=== PATIENT | male | born 1945 | race Caucasian/White ===

== ENCOUNTER 2023-10-09 15:00 | Observation (INO) ==
[2023-10-09] MEDS: NS 0.9% 1000 ml BAG 1,000 ML IV ONE ×2 (15:35→21:48)
[2023-10-09 15:45] LABS: ABS Lymphocytes 0.9 10^3/uL (1.0-4.8); ABS Monocytes 0.5 10^3/uL (0.0-1.1); ABS Neutrophils 5.4 10^3/uL (1.5-7.6); ABS Nucleated RBC 0.01 10^3/ul; Eosinophil % 0.1 %; Hematocrit 37.2 % (38-53); Hemoglobin 12.4 g/dL (13.2-16.3); Lymphocyte % 13.1 %; Mean Corpuscular Hemoglobin 30.2 pg (27-33); Mean Corpuscular Hgb Conc 33.2 g/dL (31-36); Mean Corpuscular Volume 91.1 fL (80-97); Mean Platelet Volume 10.5 fL (7.5-11.2); Nucleated Red Blood Cells % 0.1 %/100WBC (0.0-0.8); Platelet Count 148 10^3/uL (150-450); Red Blood Count 4.08 10^6/uL (4.06-5.63); Red Cell Distribution Width 14.5 % (12-17); White Blood Count 6.8 10^3/uL (3.6-10.2)
[2023-10-09 15:51] LABS: INR 1.14 (0.83-1.13)
[2023-10-09 16:10] LABS: High Sens Troponin Baseline 20 pg/mL (<20)
[2023-10-09 17:11] LABS: High Sensitivity Troponin 1 Hr 16 pg/mL (<20)
[2023-10-09 17:34] LABS: ALT 174 U/L (7-52); AST 138 U/L (13-39); Albumin 3.1 g/dL (3.2-5.2); Albumin/Globulin Ratio 1.2 (1-3); Alkaline Phosphatase 54 U/L (35-149); Anion Gap 9 mmol/L (2-16); Blood Urea Nitrogen 60 mg/dL (6-24); CO2 Carbon Dioxide 26 mmol/L (22-32); Calcium 8.1 mg/dL (8.6-10.3); Chloride 107 mmol/L (101-111); Creatinine, Serum 2.14 mg/dL (0.67-1.17); Globulin 2.6 g/dL (2-4); Glucose 106 mg/dL (70-100); Potassium 4.2 mmol/L (3.5-5.0); Sodium 142 mmol/L (135-145); Total Bilirubin 0.4 mg/dL (0.2-1.0); Total Protein 5.7 g/dL (6.4-8.9); eGFR CKD-EPI 31.3 (>60)
[2023-10-09 18:02] LABS: Magnesium 2.2 mg/dL (1.9-2.7)
[2023-10-09 19:25] LABS: TSH Ultra Thyroid Stim Horm 2.67 mcIU/mL (0.34-5.60)
[2023-10-09 19:36] LABS: Folate > 20.00 ng/mL (5.90-24.80)
[2023-10-09 19:37] LABS: Vitamin B12 906 pg/mL (180-914)
[2023-10-09 20:07] LABS: Urine Appearance Clear; Urine Bilirubin Negative (Negative); Urine Blood Negative (Negative); Urine Color Yellow; Urine Glucose Negative (Negative); Urine Ketones Negative (Negative); Urine Nitrite Negative (Negative); Urine Protein 1+ (>=30 mg/dL) (Negative); Urine Specific Gravity 1.021 (1.002-1.030); Urine Urobilinogen Negative (Negative); Urine pH 5.5 (5.0-8.0)
[2023-10-09] MEDS ORDERED: Nicotine Lozenge mini 4 MG LOZNG.MINI MT PRN (20:26)
[2023-10-09 20:29] LABS: Urine Bacteria Absent /HPF (Absent); Urine Red Blood Cell 1+(3-5/hpf) /HPF (0-Trace); Urine White Blood Cell Trace(0-5/hpf) /HPF (0-Trace)
[2023-10-09] MEDS ORDERED: Polyethylene Glycol 3350 17 GM PACKET PO PRN (20:30)
[2023-10-09 20:58] LABS: % Iron Saturation 10 % (15-55); .Transferrin 150 mg/dL (203-362); Iron < 20 ug/dL (50-212); Phosphorus 3.3 mg/dL (2.5-5.0); Total Iron Binding Capacity 210 mcg/dL (250-450); Unsaturated Iron Binding 190 ug/dL
[2023-10-09] MEDS: Enoxaparin 30 MG/0.3 ML SYR SUBCUT SCH (21:02)
[2023-10-09 21:18] LABS: Ferritin 687.1 ng/mL (24-336)
[2023-10-09] MEDS: Lactated Ringers 1000 ml BAG 1,000 ML IV SCH (22:50)
[2023-10-10] MEDS: Lactated Ringers 1000 ml BAG 1,000 ML IV SCH (01:25)
[2023-10-10 02:23] LABS: Hepatitis B Surface Antigen Nonreactive (Nonreactive)
[2023-10-10 02:28] LABS: Hepatitis A Ab IgM Negative (Negative)
[2023-10-10 02:29] LABS: Hepatitis B Core IgM Nonreactive (Nonreactive)
[2023-10-10 02:41] LABS: Hepatitis C Antibody Negative (Negative)
[2023-10-10] MEDS: DOXYcycline 100 MG in NS 0.9% 250 ml 250 ML IVPB SCH (03:07)
[2023-10-10 07:03] LABS: ABS Lymphocytes 0.8 10^3/uL (1.0-4.8); ABS Monocytes 0.4 10^3/uL (0.0-1.1); ABS Neutrophils 4.3 10^3/uL (1.5-7.6); ABS Nucleated RBC 0.01 10^3/ul; Eosinophil % 0.4 %; Hemoglobin 10.4 g/dL (13.2-16.3); Mean Corpuscular Hemoglobin 30.6 pg (27-33); Mean Corpuscular Hgb Conc 33.6 g/dL (31-36); Mean Corpuscular Volume 91.1 fL (80-97); Mean Platelet Volume 10.7 fL (7.5-11.2); Nucleated Red Blood Cells % 0.1 %/100WBC (0.0-0.8); Platelet Count 119 10^3/uL (150-450); Red Cell Distribution Width 14.2 % (12-17); White Blood Count 5.5 10^3/uL (3.6-10.2)
[2023-10-10 07:06] LABS: Albumin 2.7 g/dL (3.2-5.2); Albumin/Globulin Ratio 1.2 (1-3); C Reactive Protein 124.82 mg/L (<8.01); Calcium 7.4 mg/dL (8.6-10.3); Creatinine, Serum 1.62 mg/dL (0.67-1.17); Globulin 2.2 g/dL (2-4); Magnesium 1.8 mg/dL (1.9-2.7); Phosphorus 3.2 mg/dL (2.5-5.0); Potassium 4.1 mmol/L (3.5-5.0); Total Bilirubin 0.4 mg/dL (0.2-1.0); Total Protein 4.9 g/dL (6.4-8.9); eGFR CKD-EPI 43.7 (>60)
[2023-10-10] MEDS: Cholecalciferol (VIT D3) 1,000 unit TAB PO SCH (08:17)
[2023-10-10] MEDS: NF: Multivitamins/Mins AREDS2 (NF) CAP PO SCH (08:18)
[2023-10-10] MEDS: Nicotine PATCH 14 MG/24 HR PATCH TRANSDERM SCH (08:18)
[2023-10-10] MEDS: Magnesium Sulfate 2 gm BAG 2 GM/50 ML BAG IVPB ONE (08:18)
[2023-10-10 08:33] LABS: Erythrocyte Sed Rate 28 mm/Hr (0-19)
[2023-10-10] MEDS ORDERED: VITAMIN B12 FOLIC ACID PO SCH (09:00)
[2023-10-11 06:29] LABS: ABS Eosinophils 0.2 10^3/uL (0.0-0.5); ABS Lymphocytes 1.4 10^3/uL (1.0-4.8); ABS Monocytes 0.4 10^3/uL (0.0-1.1); ABS Nucleated RBC 0.01 10^3/ul; Eosinophil % 3.4 %; Hematocrit 31.2 % (38-53); Hemoglobin 10.4 g/dL (13.2-16.3); Lymphocyte % 27.3 %; Mean Corpuscular Hemoglobin 29.9 pg (27-33); Mean Corpuscular Hgb Conc 33.2 g/dL (31-36); Mean Corpuscular Volume 90.3 fL (80-97); Mean Platelet Volume 10.3 fL (7.5-11.2); Nucleated Red Blood Cells % 0.1 %/100WBC (0.0-0.8); Platelet Count 165 10^3/uL (150-450); Red Blood Count 3.46 10^6/uL (4.06-5.63); Red Cell Distribution Width 14.4 % (12-17); White Blood Count 5.1 10^3/uL (3.6-10.2)
[2023-10-11 06:47] LABS: Albumin 2.6 g/dL (3.2-5.2); Albumin/Globulin Ratio 1.2 (1-3); Calcium 7.5 mg/dL (8.6-10.3); Creatinine, Serum 1.23 mg/dL (0.67-1.17); Globulin 2.2 g/dL (2-4); Potassium 3.9 mmol/L (3.5-5.0); Total Bilirubin 0.3 mg/dL (0.2-1.0); Total Protein 4.8 g/dL (6.4-8.9); eGFR CKD-EPI 60.8 (>60)
[2023-10-11 09:42] VITALS: BP 93/65
[2023-10-12 17:32] LABS: Anaplasma phagocytophilum Positive (Negative); B. miyamotoi PCR, B Negative (Negative); Babesia divergens/MO-1 Negative (Negative); Babesia ducani Negative (Negative); Ehrlichia chaffeensis Negative (Negative); Ehrlichia ewingii/canis Negative (Negative); Ehrlichia muris eauclairensis Negative (Negative)
== END 2023-10-11 12:58 | disposition home or self-care (01) ==
LOC: EDHOLD 15:00 → ED 15:00 → MEDTELE 21:18
PROVIDERS: ADMIT Internal Medicine; ATTEND Internal Medicine